=== PATIENT | male | born 1985 | race Caucasian/White ===

== ENCOUNTER → 2016-09-25 | Outpatient (CLI) | payer OTHER ==
[~2016-09-25] VITALS: Ht 175.3 cm; Wt 68.2 kg
[~2016-09-25] MED LIST: NOHOMEMEDS
== END | disposition home or self-care (01) ==
LOC: AMB 11:00
PROC: 0DB68ZX Excision of Stomach, Via Natural or Artificial Opening Endoscopic, Diagnostic (ICD-10-PCS; principal; 2016-09-25)
DX: R11.2 Nausea with vomiting, unspecified (principal); R10.9 Unspecified abdominal pain; R19.7 Diarrhea, unspecified; F17.200 Nicotine dependence, unspecified, uncomplicated
CPT/HCPCS: 88305; J2250; J3010

== ENCOUNTER 2016-10-27 05:21 | Day surgery (SDC) | payer OTHER ==
[~2016-10-27] VITALS: Ht 175.3 cm; Wt 68.0 kg
[2016-10-27 05:59] VITALS: BP 125/79
[2016-10-27 06:00] VITALS: BP 125/79
[2016-10-27] MEDS ORDERED: PERCOCET 5/31 TABLET PO (09:17)
[2016-10-27] MEDS ORDERED: COLACE100 MG PO (09:17)
[2016-10-27 10:55] VITALS: BP 126/72
[2016-10-27 11:55] VITALS: BP 117/73
[2016-10-27 13:10] VITALS: BP 139/80
== END 2016-10-27 13:13 | disposition home or self-care (01) ==
LOC: SDC 05:21
PROC: 0WUF4JZ Supplement Abdominal Wall with Synthetic Substitute, Percutaneous Endoscopic Approach (ICD-10-PCS; principal; 2016-10-27)
DX: G89.29 Other chronic pain (principal); R10.33 Periumbilical pain; K42.9 Umbilical hernia without obstruction or gangrene; K90.0 Celiac disease; K52.9 Noninfective gastroenteritis and colitis, unspecified; F17.200 Nicotine dependence, unspecified, uncomplicated
CPT/HCPCS: C1781; J0131; J0330; J0690; J1100; J1170; J1885; J2250; J2405; J3010